=== PATIENT | female | born 1980 | race Caucasian/White ===

== ENCOUNTER → 2024-07-02 | Day surgery (SDC) | payer MEDICAID ==
[~2024-07-02] VITALS: Ht 144.8 cm; Wt 76.2 kg
[~2024-07-02] MED LIST: ACET-2708 PO; ASCO-339 PO; BUPIVACAINE HCL/PF 0.5% (5MG/ML) 10ML ONE; CHOL500010 PO; CLINDAMYCIN 900MG PREMIX 50 ML IV SCH; DEXAMETHASONE 4MG/ML 1ML VIAL ONE; FENTANYL CITRATE/PF 50MCG/ML 2ML VIAL ONE; FERR-71 PO; IBUP-2029 PO; LABETALOL 5MG/ML 4ML INJ IV PRN; LIDOCAINE HCL 1% 10 MG/ML 10ML VIAL ONE; MEPERIDINE HCL/PF 25MG/ML CPJ IV PRN; MIDAZOLAM HCL 2 MG/2 ML VIAL ONE; ONDANSETRON HCL 4MG/2ML INJ ONE; PROPOFOL 200MG/20ML VIAL IV ONE; ROCURONIUM BROMIDE 10MG/ML VIAL 5ML IV ONE; SKIN ADHESIVE 0.7 GM EA TOP ONE; SUGAMMADEX SODIUM 200MG/2ML VIAL IV ONE
[2024-07-02 07:51] LABS: UCG SCREEN NEGATIVE
[2024-07-02 08:13] LABS: POTASSIUM 4.2 mEq/L (3.5-5.1)
[2024-07-02] MEDS: LACTATED RINGERS 1,000 ML IV SCH (08:58)
[2024-07-02 10:55] VITALS: BP 156/94; PULSE 89; RESP 32
[2024-07-02] MEDS: HYDROMORPHONE HCL/PF 1MG/ML INJ IV PRN (10:55)
[2024-07-02] MEDS: ONDANSETRON HCL 4MG/2ML INJ IV PRN (10:56)
== END | disposition home or self-care (01) ==
LOC: OR 06:36
PROVIDERS: ATTEND Surgery
DX: K80.10 Calculus of gallbladder with chronic cholecystitis without obstruction (principal); Z79.899 Other long term (current) drug therapy; Z98.890 Other specified postprocedural states; Z88.1 Allergy status to other antibiotic agents; Z98.51 Tubal ligation status
CPT/HCPCS: 47562; 81025; 84132; 36415; 88304; J3010; J3490 ×4; J1100; J2250; J2405; J2704; J1170; J7030